=== PATIENT | female | born 1970 | race Caucasian/White ===

== ENCOUNTER 2021-06-28 09:24 | Emergency (ER) | payer OTHER ==
[2021-06-28] MEDS ORDERED: Meclizine HCl 25 MG TAB ONE (11:45)
== END 2021-06-28 11:50 | disposition home or self-care (01) ==
LOC: CSHERS 09:24
DX: H81.10 Benign paroxysmal vertigo, unspecified ear (principal); Z86.16 Personal history of COVID-19
CPT/HCPCS: 99283

== ENCOUNTER 2021-08-07 18:30 | Emergency (ER) | payer OTHER ==
[2021-08-07] MEDS ORDERED: Dexamethasone 10 MG/ML VIAL ONE (20:07)
[2021-08-07] MEDS ORDERED: Ketorolac Tromethamine 30 MG/ML VIAL ONE (20:08)
== END 2021-08-07 21:50 | disposition home or self-care (01) ==
LOC: CSHERS 18:30
DX: M46.1 Sacroiliitis, not elsewhere classified (principal); M54.50 Low back pain, unspecified
CPT/HCPCS: 96372; 99283; J1100; J1885

== ENCOUNTER 2021-11-06 13:49 | Emergency (ER) | payer OTHER ==
[2021-11-06] MEDS ORDERED: Boostrix 0.5 ML (Tdap) VIAL (>/=7 yrs of age) ONE (14:54)
[2021-11-06] MEDS ORDERED: Ibuprofen 200 MG TAB ONE (14:54)
== END 2021-11-06 15:25 | disposition home or self-care (01) ==
LOC: CSHERS 13:49
DX: S61.216A Laceration without foreign body of right little finger without damage to nail, initial encounter (principal); W26.0XXA Contact with knife, initial encounter
CPT/HCPCS: 12001; 90471; 90715

== ENCOUNTER 2022-12-17 12:59 | Outpatient (CLI) | payer BC | END 2022-12-17 13:00 | disposition home or self-care (01) | LOC: CSHULT 12:59 | DX: N85.2 Hypertrophy of uterus (principal); N95.0 Postmenopausal bleeding; R93.89 Abnormal findings on diagnostic imaging of other specified body structures | CPT/HCPCS: 76856 ==